=== PATIENT | male | born 1965 ===

== ENCOUNTER 2017-02-07 10:52 | Emergency (ER) | payer OTHER ==
[2017-02-07 11:07] VITALS: BP 131/72; RESP 16; TEMP 97.2; O2SAT 99
[2017-02-07] MEDS ORDERED: Naproxen 550 mg Tab PO STA (11:36)
[2017-02-07] MEDS ORDERED: Naproxen 550 mg Tab PO ONE (11:39)
--- NOTE | 2017-02-07 11:39 | C.PDOC ---
History Of Present Illness 51 y/o male presents to ED with c/o bilateral knee pain. Patient states he fell onto his knees while walking earlier today. Patient denies head or any other injuries. Notes past surgical history to left leg, a "muscle rupture of the hamstring" 2 years ago. Denies new weakness, new numbness, tingling sensation, or other complaints. Time Seen by Provider: 02/07/17 11:23 Chief Complaint (Nursing): Lower Extremity Problem/Injury History Per: Patient History/Exam Limitations: no limitations Onset/Duration Of Symptoms: Hrs Current Symptoms Are (Timing): Still Present Pain Scale Rating Of: 5 Recent travel outside of the [place]: No - Knee Description Of Injury: Fell Alleviating Factor(s): Ice Therapy, Elevation Past Medical History Reviewed: Historical Data, Nursing Documentation, Vital Signs Vital Signs: Last Vital Signs Temp 97.2 F L 02/07/17 11:01 Pulse 102 H 02/07/17 11:01 Resp 16 02/07/17 11:01 BP 131/72 02/07/17 11:01 Pulse Ox 99 02/07/17 12:30 - Medical History PMH: Asthma, HTN Family History: States: No Known Family Hx - Social History Hx Alcohol Use: No Hx Substance Use: No - Immunization History Hx Tetanus Toxoid Vaccination: No Hx Influenza Vaccination: Yes Hx Pneumococcal Vaccination: No Review Of Systems Except As Marked, All Systems Reviewed And Found Negative. Musculoskeletal: Positive for: Other (bilateral knee pain) Neurological: Negative for: Weakness, Numbness Physical Exam - Physical Exam Appears: Non-toxic, No Acute Distress Skin: Warm, Dry Head: Atraumatic, Normacephalic Eye(s): bilateral: Normal Inspection Oral Mucosa: Moist Neck: Normal ROM Extremity: Normal ROM, No Tenderness, Capillary Refill (< 2 sec. ), No Deformity , No Swelling Extremity: Bilateral: Normal Color And Temperature Pulses: Left Dorsalis Pedis: Normal, Right Dorsalis Pedis: Normal Neurological/Psych: Oriented x3, Normal Motor, Normal Sensation Gait: Steady ED Course And Treatment O2 Sat by Pulse Oximetry: 99 (RA) Pulse Ox Interpretation: Normal - Other Rad Left Knee XR X-Ray: Interpreted by Me, Viewed By Me Interpretation: no fracture, (+) calcifications Progress Note: X-ray ordered. Treated with Naproxen. Medical Decision Making Medical Decision Making: The patient is ambulatory in the ED with ease and steady gait. Xrays are normal and no need for brace or crutches. Disposition - Disposition Referrals: [facility] at [facility] [Outside] Disposition: HOME/ ROUTINE Disposition Time: 12:37 Condition: GOOD Additional Instructions: Follow up with the medical doctor within 1-2 days. 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 - Scribe Statement The provider has reviewed the documentation as recorded by the Barbiibmohamud Canchola All medical record entries made by the Erin were at my direction and personally dictated by me. I have reviewed the chart and agree that the record accurately reflects my personal performance of the history, physical exam, medical decision making, and the department course for this patient. I have also personally directed, reviewed, and agree with the discharge instructions and disposition.
[2017-02-07 12:44] VITALS: PULSE 90
--- NOTE | 2017-02-07 16:58 | RAD ---
PROCEDURE: Bilateral Knee Radiographs. HISTORY: knee pain, fall to both knees COMPARISON: None. FINDINGS: BONES: Right Knee: No fracture a pedunculated spur or an exostosis projects over the posterior lateral tibial epiphysis. An exostosis is believe most likely. Consider MRI to further evaluate for any cartilaginous cap. Bordering the right medial femoral condyle, is ossification/calcification consistent with prior/ remote right medial collateral ligament injury Left Knee: No fracture JOINTS: Right Knee: Mild medial femoral tibial joint space narrowing consistent with early degenerative changes Left knee: Similar to the right SOFT TISSUES: Right Knee: Faint vascular calcifications Left Knee: Faint vascular calcification JOINT EFFUSION: Right Knee: None. Left Knee: None. OTHER FINDINGS: Bilateral fabella IMPRESSION: No acute fracture. Other findings as above
== END 2017-02-07 12:44 | disposition home or self-care (01) ==
LOC: C.ER 10:52
DX: S83.92XA Sprain of unspecified site of left knee, initial encounter (principal); S83.91XA Sprain of unspecified site of right knee, initial encounter; W18.39XA Other fall on same level, initial encounter; Y93.01 Activity, walking, marching and hiking; Y92.414 Local residential or business street as the place of occurrence of the external cause